=== PATIENT | male | born 1965 | race Two or more races ===

== ENCOUNTER 2016-11-04 20:17 | Emergency (ER) | payer OTHER ==
[~2016-11-04] VITALS: Ht 185.4 cm; Wt 84.8 kg
[2016-11-04] MEDS ORDERED: cloNIDine HCL 0.1 MG TABLET PO ONE (21:30)
[2016-11-04] MEDS ORDERED: IV NORMAL SALINE 1000ML BAG 1,000 ML IV ONE (21:30)
--- NOTE | 2016-11-04 21:50 | RAD ---
Indication: Head and neck pain. Axial imaging through the brain and cervical spine was performed without contrast. Sagittal and coronal reformations were also performed. One or more of the following individualized dose reduction techniques were utilized for this examination: 1. Automated exposure control 2. Adjustment of the mA and/or kV according to patient size 3. Use of iterative reconstruction technique No prior studies are available for comparison. CT brain: The ventricles and sulci are within normal limits. No sulcal effacement, midline shift or hemorrhage is detected. The cisterns are patent. The visualized paranasal sinuses are clear. IMPRESSION: No acute intracranial process is detected. CT cervical spine: Curvature and alignment is normal. No fracture or subluxation is identified. The prevertebral tissues are normal. The odontoid is intact. IMPRESSION: No acute bony abnormality is detected. Electronically signed by: Kar Durán MD (11/04/2016 9:47 PM) [facility]
--- NOTE | 2016-11-04 22:00 | PHYS DOC ---
Past Medical History Past Medical History: Hypertension Past Surgical History: No Surgical History Alcohol Use: None Drug Use: None Adult General Chief Complaint Chief Complaint: Neck Pain HPI HPI Patient is a 51 year old male with history of hypertension who presents with 10 out of 10 posterior neck pain radiating to the head that began one week ago. Patient's also complaining of some bilateral vision with this pain. Patient states the pain radiates to his teeth. Patient denies any trauma. Denies any chest pain or shortness of breath. Patient denies this being the worst pain in his life. Patient states he used to take blood pressure medicine but ran out of it couple weeks ago. He does not have a PCP. He states he has bad teeth and does not have a dentist. Patient denies any fever Patient speaks [place] Language interpretation was provided by the language line as well as the children Review of Systems Review of Systems Constitutional: Denies fever or chills [] Eyes: Denies change in visual acuity, redness, or eye pain [] HENT: tooth pain Respiratory: Denies cough or shortness of breath [] Cardiovascular: No additional information not addressed in HPI [] GI: Denies abdominal pain, nausea, vomiting, bloody stools or diarrhea [] : Denies dysuria or hematuria [] Musculoskeletal: Denies back pain or joint pain [] Integument: Denies rash or skin lesions [] Neurologic:headache Endocrine: Denies polyuria or polydipsia [] Current Medications Current Medications Current Medications Medications (Trade) Dose Ordered Sig/Jaye Start Time Stop Time Status Last Admin Dose Admin Clonidine HCl (Catapres) 0.1 mg 1X ONCE 11/04/16 21:30 11/04/16 21:31 DC 11/04/16 21:50 0.1 MG Ketorolac Tromethamine (Toradol) 30 mg 1X ONCE 11/04/16 23:00 11/04/16 23:01 DC 11/05/16 00:16 30 MG Sodium Chloride 1,000 ml @ 1,000 mls/hr 1X ONCE 11/04/16 21:30 11/04/16 22:29 DC 11/04/16 21:50 1,000 MLS/HR Allergies Allergies Allergies Coded Allergies Type Severity Reaction Last Updated Verified No Known Drug Allergies 11/04/16 No Physical Exam Physical Exam Constitutional: Well developed, well nourished, no acute distress, non-toxic appearance. [] HENT: Normocephalic, atraumatic, bilateral external ears normal, oropharynx moist, no oral exudates, nose normal. [] Scattered dental carries noted on exam. Eyes: PERRLA, EOMI, conjunctiva normal, no discharge. [] Neck: Normal range of motion, no tenderness, supple, no stridor. [] Cardiovascular:Heart rate regular rhythm, no murmur [] Lungs & Thorax: Bilateral breath sounds clear to auscultation [] Abdomen: Bowel sounds normal, soft, no tenderness, no masses, no pulsatile masses. [] Skin: Warm, dry, no erythema, no rash. [] Back: No tenderness, no CVA tenderness. [] Extremities: No tenderness, no cyanosis, no clubbing, ROM intact, no edema. [] Neurologic: Alert and oriented X 3, normal motor function, normal sensory function, no focal deficits noted. [] Psychologic: Affect normal, judgement normal, mood normal. [] Current Patient Data Vital Signs Vital Signs Date Time Temp Pulse Resp B/P (MAP) Pulse Ox O2 Delivery O2 Flow Rate FiO2 11/04/16 21:50 72 153/99 11/04/16 20:43 97.9 18 97 Room Air 97.9 Lab Values Laboratory Tests Test 11/04/16 21:45 11/04/16 22:20 11/04/16 22:22 White Blood Count 4.6 x10^3/uL (4.0-11.0) Red Blood Count 5.21 x10^6/uL (4.30-5.70) Hemoglobin 15.5 g/dL (13.0-17.5) Hematocrit 44.9 % (39.0-53.0) Mean Corpuscular Volume 86 fL (79-100) Mean Corpuscular Hemoglobin 30 pg (25-35) Mean Corpuscular Hemoglobin Concent 35 g/dL (31-37) Red Cell Distribution Width 12.6 % (11.5-14.5) Platelet Count 171 x10^3/uL (140-400) Neutrophils (%) (Auto) 42 % (31-73) Lymphocytes (%) (Auto) 42 % (24-48) Monocytes (%) (Auto) 13 % (0-9) H Eosinophils (%) (Auto) 3 % (0-3) Basophils (%) (Auto) 0 % (0-3) Neutrophils # (Auto) 1.9 x10^3uL (1.8-7.7) Lymphocytes # (Auto) 2.0 x10^3/uL (1.0-4.8) Monocytes # (Auto) 0.6 x10^3/uL (0.0-1.1) Eosinophils # (Auto) 0.1 x10^3/uL (0.0-0.7) Basophils # (Auto) 0.0 x10^3/uL (0.0-0.2) Prothrombin Time 13.3 SEC (11.7-14.0) Prothrombin Time INR 1.1 (0.8-1.1) PTT 29 SEC (24-38) Urine Collection Type Unknown Urine Color Jenae Urine Clarity Clear Urine pH 8.0 Urine Specific [place] >=1.030 Urine Protein 100 mg/dL (NEG-TRACE) Urine Glucose (UA) Negative mg/dL (NEG) Urine Ketones (Stick) Negative mg/dL (NEG) Urine Blood Negative (NEG) Urine Nitrite Negative (NEG) Urine Bilirubin Negative (NEG) Urine Urobilinogen Dipstick 1.0 mg/dL (0.2 mg/dL) Urine Leukocyte Esterase Small (NEG) Urine RBC 0 /HPF (0-2) Urine WBC 5-10 /HPF (0-4) Urine Squamous Epithelial Cells Few /LPF Urine Bacteria 0 /HPF (0-FEW) Urine Mucus Mod /LPF Urine Opiates Screen Neg (NEG) Urine Methadone Screen Neg (NEG) Urine Barbiturates Neg (NEG) Urine Phencyclidine Screen Neg (NEG) Urine Amphetamine/Methamphetamine Neg (NEG) Urine Benzodiazepines Screen Neg (NEG) Urine Cocaine Screen Neg (NEG) Urine Cannabinoids Screen Neg (NEG) Urine Ethyl Alcohol Neg (NEG) Sodium Level 140 mmol/L (136-145) Potassium Level 3.9 mmol/L (3.5-5.1) Chloride Level 104 mmol/L (98-107) Carbon Dioxide Level 33 mmol/L (21-32) H Anion Gap 3 (6-14) L Blood Urea Nitrogen 12 mg/dL (8-26) Creatinine 0.8 mg/dL (0.7-1.3) Estimated GFR (Cockcroft-Gault) 102.7 Glucose Level 113 mg/dL (70-99) H Calcium Level 7.8 mg/dL (8.5-10.1) L Creatine Kinase 65 U/L (39-308) Creatine Kinase MB (Mass) < 0.5 ng/mL (0.0-3.6) Creatine Kinase MB Relative Index % (0-4) Troponin I Quantitative < 0.017 ng/mL (0.000-0.055) [id number]-Type Natriuretic Peptide < 5 pg/mL (0-124) Ethyl Alcohol Level < 10 mg/dL (0-10) Laboratory Tests 11/04/16 21:45 Laboratory Tests 11/04/16 22:22 EKG EKG EKG interpreted by Dr. Anguiano sinus rym, HR 72 no STEMI[] Radiology/Procedures Radiology/Procedures Chest x-ray interpreted by Dr. Medina is negative for any acute findings. [] Course & Med Decision Making Course & Med Decision Making Pertinent Labs and Imaging studies reviewed. (See chart for details) Patient is in the ED with complaints of neck pain radiating to the head that began a week ago. No known trauma. Symptoms suspicious of torticollis. Patient was also complaining of pain radiating to the teeth. He does have dental caries. There was major language barrier despite using [employer]. We went ahead and worked up this patient excluding EKG, labs which were negative, CT of the head and cervical spine which were negative for any acute findings, chest x-ray interpreted by Dr. Medina was negative for any acute findings. Patient's blood pressure was elevated in the 150s over 90s. He has history of hypertension. We did give him clonidine in the ED. BP came down to 120s/70s. Patient does not know what he used to take for hypertension. I provided him a doctor's list and requested he follows up. He was discharged with diclofenac, cyclobenzaprine, Medrol Dosepak and amoxicillin. Provided instructions to follow -up with the PCP as soon as possible. Dragon Disclaimer Dragon Disclaimer This electronic medical record was generated, in whole or in part, using a voice recognition dictation system. Departure Departure Impression: Primary Impression: Torticollis, acute Additional Impressions: Dental caries Hypertension Disposition: 01 HOME, SELF-CARE Condition: STABLE Referrals: UNKNOWN PCP NAME (PCP) follow up with your doctor in one week Patient Instructions: Dental Caries, Torticollis, Acute Additional Instructions: You were seen for neck and head pain. You also have dental caries. Please ensure you complete your antibiotics. Take the rest of the medications as prescribed. Do not drive or operate machinery on the cyclobenzaprine. Follow-up with the doctor from the list provided as soon as possible. Come back to the ED at any point if symptoms worsen. Scripts Amoxicillin (AMOXICILLIN) 500 Mg Tablet 1 TAB PO TID, #30 TAB Prov: SARITHA CANNON APRN 11/04/16 Methylprednisolone (MEDROL) 4 Mg Tab.ds.pk 1 PKG PO UD, #1 PKG Prov: SARITHA CANNON APRN 11/04/16 Cyclobenzaprine Hcl (CYCLOBENZAPRINE HCL) 10 Mg Tablet 1 TAB PO TID, #30 TAB Prov: SARITHA CANNON APRN 11/04/16 Diclofenac Potassium (DICLOFENAC POTASSIUM) 50 Mg Tablet 1 TAB PO BID, #60 TAB 1 Refill Prov: SARITHA CANNON APRN 11/04/16 Problem Qualifiers Additional Impressions: Hypertension Hypertension type: unspecified Qualified Codes: I10 - Essential (primary) hypertension SARITHA CANNON APRN Nov 04, 2016 22:00
[2016-11-04 22:02] LABS: BASO % 0 % (0-3); EOS % 3 % (0-3); HEMATOCRIT 44.9 % (39.0-53.0); HEMOGLOBIN 15.5 g/dL (13.0-17.5); LYMPH % 42 % (24-48); MEAN CORPUSCULAR HEMOGLOBIN 30 pg (25-35); MEAN CORPUSCULAR HGB CONC 35 g/dL (31-37); MEAN CORPUSCULAR VOLUME 86 fL (79-100); MONO % 13 % (0-9); NEUT % 42 % (31-73); PLATELET COUNT 171 x10^3/uL (140-400); RED BLOOD COUNT 5.21 x10^6/uL (4.30-5.70); RED CELL DISTRIBUTION WIDTH 12.6 % (11.5-14.5); WHITE BLOOD COUNT 4.6 x10^3/uL (4.0-11.0)
[2016-11-04 22:11] LABS: INR 1.1 (0.8-1.1); PROTHROMBIN TIME PATIENT 13.3 SEC (11.7-14.0)
[2016-11-04 22:41] LABS: BILIRUBIN,URINE NEGATIVE (NEG); GLUCOSE,URINE NEGATIVE (NEG); NITRITE,URINE NEGATIVE (NEG); PROTEIN,URINE 100 mg/dL (NEG-TRACE)
[2016-11-04 22:42] LABS: CALCIUM 7.8 mg/dL (8.5-10.1); CREATININE 0.8 mg/dL (0.7-1.3); GFR 102.7; POTASSIUM 3.9 mmol/L (3.5-5.1)
[2016-11-04 22:45] LABS: BARBITURATES NEG (NEG); BENZODIAZEPINES NEG (NEG); CANNABINOIDS NEG (NEG); COCAINE NEG (NEG); METHADONE NEG (NEG); OPIATES NEG (NEG); PHENCYCLIDINE NEG (NEG)
[2016-11-04 22:54] LABS: BACTERIA,URINE 0 /HPF (0-FEW); RBC,URINE 0 /HPF (0-2); SQUAMOUS EPITHELIAL CELL,UR FEW /LPF
[2016-11-04 22:57] LABS: CREATINE KINASE 65 U/L (39-308)
[2016-11-04 22:58] LABS: CKMB MASS < 0.5 ng/mL (0.0-3.6)
[2016-11-04] MEDS ORDERED: KETOROLAC TROMETHAMINE 30 MG/ML INJ. IV ONE (23:00)
[2016-11-04] MEDS ORDERED: DICL50TA2 PO (23:50)
[2016-11-04] MEDS ORDERED: AMOX500T PO (23:51)
[2016-11-04] MEDS ORDERED: CYCL10TA2 PO (23:51)
[2016-11-04] MEDS ORDERED: METH4TAB2 PO (23:51)
[2016-11-05 00:08] VITALS: BP 133/81
--- NOTE | 2016-11-05 06:14 | EKG ---
[facility] [address] [place] [address] Test Date: 2016-11-04 Test Time: 21:18:45 Pat Name: ELSY CARRASCO Department: Room: Gender: Home Care Consultant: : 1965 Requested By: SARITHA CANNON Order Number: [id number] Reading MD: Measurements Intervals [place] Rate: 72 P: 34 NM: 176 QRS: 11 QRSD: 80 T: 22 QT: 352 QTc: 387 Interpretive Statements SINUS RHYTHM RI6.01 Unconfirmed report No previous ECG available for comparison
--- NOTE | 2016-11-05 07:55 | RAD ---
Indication chest pain. A single view of the chest was obtained. No prior imaging of the chest is available. The extreme right chest is not included on the single film obtained. The heart, pulmonary vessels and mediastinum appear normal. The lungs are clear of acute infiltrates. Significant pleural fluid is not seen. There is no pneumothorax. IMPRESSION: No acute or focal process is seen in the chest
== END 2016-11-05 00:26 | disposition home or self-care (01) ==
LOC: ER 20:17
DX: M43.6 Torticollis (principal); K02.9 Dental caries, unspecified; I10 Essential (primary) hypertension
CPT/HCPCS: 36415; 70450; 71010; 72125; 80048; 80307; 81001; 82553; 83880; 84484; 85027; 85610; 85730; 93005; 96361; 96374; 99285; G0480; J1885; J7030; G0479

== ENCOUNTER 2016-11-29 13:24 | Emergency (ER) | payer OTHER ==
[~2016-11-29 13:24] MED LIST: AMOX500T PO; CYCL10TA2 PO; DICL50TA2 PO; METH4TAB2 PO
[2016-11-29 14:06] VITALS: BP 124/88
[2016-11-29] MEDS ORDERED: CYCL10TA2 PO (14:09)
[2016-11-29] MEDS ORDERED: METH4TAB2 PO (14:09)
[2016-11-29] MEDS ORDERED: DICL50TA2 PO (14:09)
--- NOTE | 2016-11-29 14:10 | PHYS DOC ---
Past Medical History Past Medical History: Hypertension Past Surgical History: No Surgical History Alcohol Use: None Drug Use: None Adult General Chief Complaint Chief Complaint: Neck Pain HPI HPI Patient is a 51 year old male with history of hypertension who presents today with mild posterior neck pain radiating to the headache that began yesterday. Patient denies any trauma. Patient states this is a chronic condition. He states he has an appointment with his doctor at [facility] in December. He is requesting the same medication he got last time he was in the ED which was diclofenac Medrol Dosepak and cyclobenzaprine. Patient states the pain is worse on movement. Review of Systems Review of Systems Constitutional: Denies fever or chills [] Eyes: Denies change in visual acuity, redness, or eye pain [] HENT: Denies nasal congestion or sore throat [] Respiratory: Denies cough or shortness of breath [] Cardiovascular: No additional information not addressed in HPI [] GI: Denies abdominal pain, nausea, vomiting, bloody stools or diarrhea [] : Denies dysuria or hematuria [] Musculoskeletal: Neck pain Integument: Denies rash or skin lesions [] Neurologic: Denies headache, focal weakness or sensory changes [] Allergies Allergies Allergies Coded Allergies Type Severity Reaction Last Updated Verified No Known Drug Allergies 11/04/16 No Physical Exam Physical Exam Constitutional: Well developed, well nourished, no acute distress, non-toxic appearance. [] HENT: Normocephalic, atraumatic, bilateral external ears normal, oropharynx moist, no oral exudates, nose normal. [] Eyes: PERRLA, EOMI, conjunctiva normal, no discharge. [] Neck: Normal range of motion, diffuse paraspinal muscle tenderness to posterior cervical spine, no midline cervical spine tenderness, supple, no stridor. [] Cardiovascular:Heart rate regular rhythm, no murmur [] Lungs & Thorax: Bilateral breath sounds clear to auscultation [] Abdomen: Bowel sounds normal, soft, no tenderness, no masses, no pulsatile masses. [] Skin: Warm, dry, no erythema, no rash. [] Back: No tenderness, no CVA tenderness. [] Extremities: No tenderness, no cyanosis, no clubbing, ROM intact, no edema. [] Neurologic: Alert and oriented X 3, normal motor function, normal sensory function, no focal deficits noted. [] Psychologic: Affect normal, judgement normal, mood normal. [] EKG EKG [] Radiology/Procedures Radiology/Procedures [] Course & Med Decision Making Course & Med Decision Making Pertinent Labs and Imaging studies reviewed. (See chart for details) Patient is in the ED with with exacerbation of chronic neck pain. He has an appointment with his doctor at [facility] in December. He'll be discharged with cyclobenzaprine and diclofenac and Medrol dose pack which he has taken before with good relief. Warm compresses recommended to the neck. Provided return precautions and discharged in stable condition. Dragon Disclaimer Dragon Disclaimer This electronic medical record was generated, in whole or in part, using a voice recognition dictation system. Departure Departure Impression: Primary Impression: Neck pain, chronic Disposition: HOME, SELF-CARE Condition: STABLE Referrals: NO PCP (PCP) Follow-up with your doctor in one week Patient Instructions: Cervical Sprain, [id number] Additional Instructions: You were seen with neck pain. Make sure you follow-up with your doctor at [facility] in December. Take the prescribed medicines as ordered. Do not drive or operate machinery on the cyclobenzaprine. You can apply warm compresses/heating pad to your neck as needed. You have refills on your medicines. You can call me Saritha Cannon at [phone] if you have any questions. Scripts Cyclobenzaprine Hcl (CYCLOBENZAPRINE HCL) 10 Mg Tablet 1 TAB PO TID, #90 TAB 1 Refill Prov: SARITHA CANNON APRN 11/29/16 Diclofenac Potassium (DICLOFENAC POTASSIUM) 50 Mg Tablet 1 TAB PO BID, #60 TAB 1 Refill Prov: SARITHA CANNON APRN 11/29/16 Methylprednisolone (MEDROL) 4 Mg Tab.ds.pk 1 PKG PO UD, #1 PKG Prov: SARITHA CANNON APRN 11/29/16 SARITHA CANNON APRN Nov 29, 2016 14:10
== END 2016-11-29 14:14 | disposition home or self-care (01) ==
LOC: ER 13:24
DX: G89.29 Other chronic pain (principal); M54.2 Cervicalgia; R51 Headache; I10 Essential (primary) hypertension
CPT/HCPCS: 99283

== ENCOUNTER 2019-06-08 15:17 | Emergency (ER) | payer SELFPAY ==
[~2019-06-08] VITALS: Ht 190.5 cm; Wt 82.0 kg
--- NOTE | 2019-06-08 16:10 | PHYS DOC ---
Past Medical History Past Medical History: Hypertension Past Surgical History: No Surgical History Smoking Status: Never Smoker Alcohol Use: None Drug Use: None Adult General Chief Complaint Chief Complaint: ABDOMINAL PAIN HPI HPI Patient is a 54 year old male who presents with hot and cold chills, cough, sore throat, abdominal pain, loss of appetite, nausea, vomiting, diarrhea at this been ongoing for last week. The patient states that he has a history of diabetes and hypertension. The patient states that he was recently started on diabetic medic medications which he has had trouble keeping down. Denies any travel or sick contacts. Complete ROS were reviewed and found to be within normal limits, except as documented in the HPI Current Medications Current Medications Current Medications Medications (Trade) Dose Ordered Sig/Jaye Start Time Stop Time Status Last Admin Dose Admin Albuterol/ Ipratropium (Duoneb) 3 ml 1X ONCE 06/08/19 17:00 06/08/19 17:01 DC 06/08/19 17:00 3 ML Info (CONTRAST GIVEN -- Rx MONITORING) 1 each PRN DAILY PRN 06/08/19 17:45 06/10/19 17:44 Iohexol (Omnipaque 300 Mg/ml) 75 ml 1X ONCE 06/08/19 17:30 06/08/19 17:31 DC 06/08/19 17:39 75 ML Magnesium Sulfate/ Dextrose 100 ml @ 100 mls/hr 1X STAT 06/08/19 18:00 06/08/19 18:59 06/08/19 18:21 100 MLS/HR Ondansetron HCl (Zofran) 4 mg 1X ONCE 06/08/19 16:15 06/08/19 16:16 DC 06/08/19 16:57 4 MG Sodium Chloride 1,000 ml @ 1,000 mls/hr 1X ONCE 06/08/19 16:15 06/08/19 17:14 DC 06/08/19 16:57 1,000 MLS/HR Allergies Allergies Allergies Coded Allergies Type Severity Reaction Last Updated Verified No Known Drug Allergies 11/04/16 No Physical Exam Physical Exam Constitutional: Well developed, well nourished, no acute distress, non-toxic appearance. [] HENT: Normocephalic, atraumatic, bilateral external ears normal, oropharynx moist, no oral exudates, nose normal. [] Eyes: PERRLA, EOMI, conjunctiva normal, no discharge. [] Neck: Normal range of motion, no tenderness, supple, no stridor. [] Cardiovascular:Heart rate regular rhythm, no murmur [] Lungs & Thorax: Bilateral breath sounds clear to auscultation [] Abdomen: Bowel sounds normal, soft, diffuse abdominal tenderness, no masses, no pulsatile masses. [] Neurologic: Alert and oriented X 3, normal motor function, normal sensory function, no focal deficits noted. [] Psychologic: Affect normal, judgement normal, mood normal. [] Current Patient Data Vital Signs Vital Signs Date Time Temp Pulse Resp B/P (MAP) Pulse Ox O2 Delivery O2 Flow Rate FiO2 06/08/19 17:21 97 Room Air 06/08/19 16:09 97.6 81 18 142/81 (101) 97.6 Lab Values Laboratory Tests Test 06/08/19 16:45 White Blood Count 3.8 x10^3/uL (4.0-11.0) L Red Blood Count 5.48 x10^6/uL (4.30-5.70) Hemoglobin 16.0 g/dL (13.0-17.5) Hematocrit 46.0 % (39.0-53.0) Mean Corpuscular Volume 84 fL (79-100) Mean Corpuscular Hemoglobin 29 pg (25-35) Mean Corpuscular Hemoglobin Concent 35 g/dL (31-37) Red Cell Distribution Width 12.0 % (11.5-14.5) Platelet Count 196 x10^3/uL (140-400) Neutrophils (%) (Auto) 40 % (31-73) Lymphocytes (%) (Auto) 46 % (24-48) Monocytes (%) (Auto) 12 % (0-9) H Eosinophils (%) (Auto) 2 % (0-3) Basophils (%) (Auto) 0 % (0-3) Neutrophils # (Auto) 1.5 x10^3/uL (1.8-7.7) L Lymphocytes # (Auto) 1.7 x10^3/uL (1.0-4.8) Monocytes # (Auto) 0.5 x10^3/uL (0.0-1.1) Eosinophils # (Auto) 0.1 x10^3/uL (0.0-0.7) Basophils # (Auto) 0.0 x10^3/uL (0.0-0.2) Sodium Level 131 mmol/L (136-145) L Potassium Level 4.2 mmol/L (3.5-5.1) Chloride Level 94 mmol/L (98-107) L Carbon Dioxide Level 28 mmol/L (21-32) Anion Gap 9 (6-14) Blood Urea Nitrogen 26 mg/dL (8-26) Creatinine 1.0 mg/dL (0.7-1.3) Estimated GFR (Cockcroft-Gault) 78.5 BUN/Creatinine Ratio 26 (6-20) H Glucose Level 213 mg/dL (70-99) H Calcium Level 9.1 mg/dL (8.5-10.1) Magnesium Level 1.5 mg/dL (1.8-2.4) L Total Bilirubin 0.6 mg/dL (0.2-1.0) Aspartate Amino Transferase (AST) 19 U/L (15-37) Alanine Aminotransferase (ALT) 25 U/L (16-63) Alkaline Phosphatase 97 U/L (46-116) Total Protein 7.1 g/dL (6.4-8.2) Albumin 3.5 g/dL (3.4-5.0) Albumin/Globulin Ratio 1.0 (1.0-1.7) Influenza Type A Antigen Negative (NEGATIVE) Influenza Type B Antigen Negative (NEGATIVE) Laboratory Tests 06/08/19 16:45 Laboratory Tests 06/08/19 16:45 EKG EKG [] Radiology/Procedures Radiology/Procedures [facility] [address] [place] [address] IMAGING REPORT Signed PATIENT: ELSY CARRASCOACCOUNT: [id number] : 1965 LOCATION: ER AGE: 54 SEX: M EXAM STATUS: REG ER ORD. PHYSICIAN: EDWARDO BYERS APRN REASON: cough, fever PROCEDURE: CHEST PA & LATERAL EXAM: PA and Lateral Views of the Chest DATE: 06/08/2019 4:08 PM INDICATION: Cough, fever COMPARISON: 11/04/2016 FINDINGS: The heart is not enlarged. Mediastinal and hilar contours are normal. Minimal patchy opacities right lung base likely atelectasis. No lobar consolidation. No pleural effusion or pneumothorax. IMPRESSION: Minimal patchy opacities right lung base likely atelectasis. No lobar consolidation. Electronically signed by: Robi Archuleta MD (06/08/2019 4:30 PM) [id number] DICTATED and SIGNED BY: ROBI ARCHULETA MD DATE: 06/08/19 1630 [][facility] [address] [place] [address] IMAGING REPORT Signed PATIENT: ELSY CARRASCOACCOUNT: [id number] : 1965 LOCATION: ER AGE: 54 SEX: M EXAM STATUS: REG ER ORD. PHYSICIAN: EDWARDO BYERS APRN REASON: cough, fever, abdominal pain PROCEDURE: CT ABD PELV W/ IV CONTRST ONLY EXAM: CT Abdomen and Pelvis with IV contrast CLINICAL HISTORY: . COMPARISON: none TECHNIQUE: Helical CT of the abdomen and pelvis was performed following the administration of intravenous contrast. Axial, coronal and sagittal reformatted images were generated. PQRS compliance statement - One or more of the following individualized dose reduction techniques were utilized for this study: 1. Automated exposure control 2. Adjustment of the mA and/or kV according to patient size 3. Use of iterative reconstruction technique FINDINGS: Lower chest: 5 mm left lower lobe lung nodule (series 2 image 3). Small hiatal hernia. Abdomen and Pelvis: Focal low-attenuation along the falciform ligament likely focal fatty infiltration. Gallbladder is normal. No biliary ductal dilatation. Spleen is unremarkable. Adrenal glands are normal. Pancreas is unremarkable. Symmetric nephrograms. No focal renal lesion. No hydronephrosis. Appendix is normal. Moderate colonic stool content is seen. No small or large bowel dilatation. No bowel obstruction. No free or loculated abdominal or pelvic collection. No abdominal or pelvic lymphadenopathy. Small fat-containing periumbilical hernia is seen. Mild fatty atrophy of the posterior paraspinal muscles versus prominent lipomas Bones: Sclerotic focus left femoral neck likely bone island. Osseous structures are grossly unremarkable. IMPRESSION: 1. Focal hepatic low-attenuation along the falciform ligament likely focal fatty infiltration. 2. 5 mm left lower lobe lung nodule is seen. Per Fleischner Society guidelines for incidentally found solid nodules measuring less than 6 mm, no follow-up is necessary if patient is considered at low risk for lung cancer. If patient is considered to be at high risk, such as with history of smoking, then CT follow-up in about 12 months can be considered. 3. Electronically signed by: Robi Archuleta MD (06/08/2019 5:52 PM) [id number] DICTATED and SIGNED BY: ROBI ARCHULETA MD DATE: 06/08/19 1752 Course & Med Decision Making Course & Med Decision Making Pertinent Labs and Imaging studies reviewed. (See chart for details) We will obtain labs, CT scan, and give supportive care. Because of patient has been symptomatic with flulike symptoms we will also obtain a flu test if the flu test is negative have told the patient that he will need to self quarantine for the next 14 days. Magnesium is low. Will replace magnesium and then d/c home with self isolation. Dragon Disclaimer Dragon Disclaimer This electronic medical record was generated, in whole or in part, using a voice recognition dictation system. Departure Departure Impression: Primary Impression: Viral syndrome Disposition: HOME, SELF-CARE Condition: STABLE Referrals: NO PCP (PCP) Patient Instructions: Viral Syndrome Additional Instructions: Thank you for visiting [facility]. We appreciate you trusting us with your care. If any additional problems come up don't hesitate to return to visit us. Please follow up with your primary care provider so they can plan additional care if needed and know about the problem that you had. If symptoms worsen come back to the Emergency Department. Any concerning symptoms that start such as chest pain, shortness of air, weakness or numbness on one side of the body, running high fevers or any other concerning symptoms return to the ER. You have a viral syndrome which may include symptoms like muscle aches, fevers, chills, runny nose, cough, sneezing, sore throat, vomiting, or diarrhea. One of the potential viruses that you may have is SARS-CoV-2, the virus that causes COVID-19, also known as the Coronavirus. You are just as likely to have a different viral infection such as the common cold, flu, etc. Most patients with the Coronavirus have mild symptoms and recover on their own. Resting, staying hydrated, and sleep from known cases can be helpful. As of todays visit, you are well enough to go home and treat your symptoms with oral fluids and over the counter medications. Coronavirus testing is not performed on most people with mild symptoms who are being discharged from the emergency department. If Coronavirus testing was performed the results will not be available for possibly up to 2-3 days. If your result is positive you will be contacted. Please follow the following precautions at home: 1) Stay home except to get medical care. 2) As advised by the CDC we recommend you stay in your home and minimize contact with other people. We do not want you to spread the infection. 3) Those who are older or have significant medical issues may have more severe symptoms from this infection. We recommend self-isolation,FOR AT LEAST 7 DAYS after your 1st day of symptoms. AFTER you feel better please wait AT LEAST ANOTHER WEEK before returning to regular activities and being around other people! 4) IF you become sicker and have difficulty breathing, chest pain, unable to eat/drink, severe vomiting, diarrhea, or weakness you may need to return to the Emergency Department. 5) You should restrict activities outside your home, except for getting medical care. DO NOT go to work, school, or public areas. Avoid using public transportation, ride sharing, or taxis. 6) Separate yourself from other people in your home. You should use a separate bathroom if possible. 7) Avoid sharing personal household items such as dishes, cups, eating utensils, towels, etc. 8) Clean all high touch surfaces every day (door knobs, counter tops, etc). Use a household cleaning spray or wipe per label instructions. 9) Clean your hands often. Wash your hands with soap and water for at least 20 seconds. 10) Cover your mouth and nose with a tissue when you cough or sneeze. 11) Throw used tissues in a trash can and immediately wash your hands. For additional resources please visit the CDC website or the [facility] ([phone]). Scripts Ondansetron (ONDANSETRON ODT) 4 Mg Tab.rapdis 1 TAB PO PRN Q6-8HRS PRN for NAUSEA, #20 TAB Prov: EDWARDO BYERS APRN 06/08/19 EDWARDO BYERS APRN Jun 08, 2019 16:10
[2019-06-08] MEDS ORDERED: IV NORMAL SALINE 1000ML BAG 1,000 ML IV ONE (16:15)
[2019-06-08] MEDS ORDERED: ONDANSETRON PF 4 MG/2 ML VIAL. IV ONE (16:15)
--- NOTE | 2019-06-08 16:33 | RAD ---
EXAM: PA and Lateral Views of the Chest DATE: 06/08/2019 4:08 PM INDICATION: Cough, fever COMPARISON: 11/04/2016 FINDINGS: The heart is not enlarged. Mediastinal and hilar contours are normal. Minimal patchy opacities right lung base likely atelectasis. No lobar consolidation. No pleural effusion or pneumothorax. IMPRESSION: Minimal patchy opacities right lung base likely atelectasis. No lobar consolidation. Electronically signed by: Robi Archuleta MD (06/08/2019 4:30 PM) [id number]
[2019-06-08] MEDS ORDERED: IPRATRPIUM/ALBUTEROL 0.5/2.5MG 3 ML NEBU. NEB ONE (17:00)
[2019-06-08 17:02] LABS: BASO % 0 % (0-3); EOS # 0.1 x10^3/uL (0.0-0.7); EOS % 2 % (0-3); LYMPH # 1.7 x10^3/uL (1.0-4.8); LYMPH % 46 % (24-48); MEAN CORPUSCULAR HEMOGLOBIN 29 pg (25-35); MEAN CORPUSCULAR HGB CONC 35 g/dL (31-37); MEAN CORPUSCULAR VOLUME 84 fL (79-100); MONO # 0.5 x10^3/uL (0.0-1.1); MONO % 12 % (0-9); NEUT # 1.5 x10^3/uL (1.8-7.7); NEUT % 40 % (31-73); PLATELET COUNT 196 x10^3/uL (140-400); RED BLOOD COUNT 5.48 x10^6/uL (4.30-5.70); WHITE BLOOD COUNT 3.8 x10^3/uL (4.0-11.0)
[2019-06-08 17:11] LABS: CALCIUM 9.1 mg/dL (8.5-10.1); GFR 78.5; POTASSIUM 4.2 mmol/L (3.5-5.1)
[2019-06-08 17:18] LABS: ALBUMIN 3.5 g/dL (3.4-5.0); MAGNESIUM 1.5 mg/dL (1.8-2.4); TOTAL BILIRUBIN 0.6 mg/dL (0.2-1.0); TOTAL PROTEIN 7.1 g/dL (6.4-8.2)
[2019-06-08 17:21] LABS: INFLUENZA A PATIENT NEGATIVE (NEGATIVE); INFLUENZA B PATIENT NEGATIVE (NEGATIVE)
[2019-06-08] MEDS ORDERED: IOHEXOL 300 MG/ML 100ML VIAL. IV ONE (17:30)
[2019-06-08] MEDS ORDERED: CONTRAST GIVEN. MC PRN (17:45)
--- NOTE | 2019-06-08 17:55 | RAD ---
EXAM: CT Abdomen and Pelvis with IV contrast CLINICAL HISTORY: . COMPARISON: none TECHNIQUE: Helical CT of the abdomen and pelvis was performed following the administration of intravenous contrast. Axial, coronal and sagittal reformatted images were generated. PQRS compliance statement - One or more of the following individualized dose reduction techniques were utilized for this study: 1. Automated exposure control 2. Adjustment of the mA and/or kV according to patient size 3. Use of iterative reconstruction technique FINDINGS: Lower chest: 5 mm left lower lobe lung nodule (series 2 image 3). Small hiatal hernia. Abdomen and Pelvis: Focal low-attenuation along the falciform ligament likely focal fatty infiltration. Gallbladder is normal. No biliary ductal dilatation. Spleen is unremarkable. Adrenal glands are normal. Pancreas is unremarkable. Symmetric nephrograms. No focal renal lesion. No hydronephrosis. Appendix is normal. Moderate colonic stool content is seen. No small or large bowel dilatation. No bowel obstruction. No free or loculated abdominal or pelvic collection. No abdominal or pelvic lymphadenopathy. Small fat-containing periumbilical hernia is seen. Mild fatty atrophy of the posterior paraspinal muscles versus prominent lipomas Bones: Sclerotic focus left femoral neck likely bone island. Osseous structures are grossly unremarkable. IMPRESSION: 1. Focal hepatic low-attenuation along the falciform ligament likely focal fatty infiltration. 2. 5 mm left lower lobe lung nodule is seen. Per Fleischner Society guidelines for incidentally found solid nodules measuring less than 6 mm, no follow-up is necessary if patient is considered at low risk for lung cancer. If patient is considered to be at high risk, such as with history of smoking, then CT follow-up in about 12 months can be considered. 3. Electronically signed by: Robi Archuleta MD (06/08/2019 5:52 PM) [id number]
[2019-06-08] MEDS ORDERED: MAGNESIUM SULFATE 1GM 100 ML IV STA (18:00)
[2019-06-08] MEDS ORDERED: ONDA4TAB12 PO (18:03)
[2019-06-08 19:28] VITALS: BP 118/66
== END 2019-06-08 19:32 | disposition home or self-care (01) ==
LOC: ER 15:17
DX: B34.9 Viral infection, unspecified (principal); R11.2 Nausea with vomiting, unspecified; R19.7 Diarrhea, unspecified; R05 Cough; R63.0 Anorexia; I10 Essential (primary) hypertension
CPT/HCPCS: 36415; 71046; 74177; 80053; 83735; 85025; 87070; 87804; 87880; 94640; 96361; 96365; 96375; 99285; J2405; J3475; J7030; Q9967